=== PATIENT | female | born 2000 | race African-American/Black ===

== ENCOUNTER 2024-10-25 23:09 | Emergency (ER) | payer MEDICAID ==
[~2024-10-25] VITALS: Ht 167.6 cm; Wt 66.0 kg
[2024-10-25 23:17] VITALS: O2SAT 100
[2024-10-25 23:51] VITALS: BP 102/55; PULSE 71; RESP 18; TEMP 36.6; O2SAT 100
[2024-10-26] MEDS: TETANUS, DIPHTHERIA, PERTUSSIS VAC/PF 0.5ML (>10YR OLD) IM ONE (01:00)
== END 2024-10-26 01:31 | disposition home or self-care (01) ==
LOC: ER 23:33
DX: S91.332A Puncture wound without foreign body, left foot, initial encounter (principal); J45.909 Unspecified asthma, uncomplicated; X58.XXXA Exposure to other specified factors, initial encounter; Y93.89 Activity, other specified; Y92.89 Other specified places as the place of occurrence of the external cause; Y99.8 Other external cause status
CPT/HCPCS: 99283; 90715; 90471; Z7610